=== PATIENT | female | born 1975 | race Caucasian/White ===

== ENCOUNTER 2018-02-07 18:51 | Emergency (ER) | payer BC ==
[2018-02-07] MEDS ORDERED: IPRATROPIUM-ALBUTEROL 3 ML NEB INHALATION STA (19:36)
[2018-02-07] MEDS ORDERED: methylPREDNISolone SOD SUCCI 125 MG/2 ML VIAL IM STA (19:36)
--- NOTE | 2018-02-07 19:38 | ED ---
SOB HPI - General Chief Complaint: Shortness of Breath Stated Complaint: SOB, Cold Time Seen by Provider: 02/07/18 19:17 Source: patient Mode of arrival: ambulatory Limitations: no limitations - History of Present Illness Initial Comments: Patient is a 42-year-old female with a history of asthma presents for congestion and coughing. She states that she has been working on drywall at her home and that she was exposed to a lot of. Other allergens. Since that time today, she has been having a lot of congestion but denies any overt chest pain or shortness of breath. She is also been coughing significantly but no fevers or chills. She also denies any abdominal pain or nausea/vomiting/ diarrhea. - Related Data Home Medications Medication Instructions Recorded Confirmed Acetaminophen Tab [Tylenol] 1,000 mg PO Q6HR PRN 10/05/15 10/13/15 Albuterol Inhaler [Ventolin Hfa 1 - 2 puff INHALATION RT-Q6H PRN 10/05/15 Inhaler] Ranitidine HCl [Zantac] 150 mg PO DAILY PRN 10/05/15 10/13/15 HYDROcodone/APAP 7.5-325MG [[place] 1 tab PO Q4H PRN 10/13/15 10/13/15 7.5-325] Sennosides [Ex-Lax] 15 mg PO BID PRN 10/13/15 10/13/15 Previous Rx's Medication Instructions Recorded Docusate [Colace] 100 mg PO BID #30 capsule 10/09/15 Albuterol Inhaler [Ventolin Hfa 1 - 2 puff INHALATION Q6HR PRN #1 02/07/18 Inhaler] inhaler Albuterol Nebulized [Ventolin 2.5 mg INHALATION Q4H PRN #30 nebu 02/07/18 Nebulized] predniSONE 50 mg PO DAILY #5 tablet 02/07/18 Allergies Allergy/AdvReac Type Severity Reaction Status Date / Time hydrocodone bitartrate AdvReac Unknown Itching Verified 02/07/18 19:06 [From Vicodin] Review of Systems ROS Statement: Those systems with pertinent positive or pertinent negative responses have been documented in the HPI. Constitutional: Negative for chills, fatigue and fever. HENT: Positive for congestion. Respiratory: Negative for chest tightness, shortness of breath and wheezing. Positive for cough Cardiovascular: Negative for chest pain and palpitations. Gastrointestinal: Negative for abdominal pain. Negative for abdominal distention , diarrhea, nausea and vomiting. Genitourinary: Negative for dysuria. Musculoskeletal: Negative for back pain, neck pain and neck stiffness. Skin: Negative for color change. Neurological: Negative for dizziness, speech difficulty, weakness and light- headedness. Psychiatric/Behavioral: Negative for agitation and confusion. The patient is not nervous/anxious. ROS Other: All systems not noted in ROS Statement are negative. Past Medical History Past Medical History: Asthma, Fibromyalgia, GERD/Reflux, GI Bleed, Musculoskeletal Disorder Additional Past Medical History / Comment(s): buldging disc, hx of anemia., pt states she fell and has right knee pain and swelling right lower leg and foot, states she is following with her dr. PT STATES THAT 09/08/15 SHE EXPERIENCED MIDSTERNAL CHEST PAIN AND A FAST HEART BEAT; FELLS OK NOW. History of Any Multi-Drug Resistant Organisms: None Reported Past Surgical History: Section, Tubal Ligation, Uterine Ablation Additional Past Surgical History / Comment(s): hemmoroidectomy 10/09/2015 Past Anesthesia/Blood Transfusion Reactions: Postoperative Nausea & Vomiting ( PONV) Past Psychological History: No Psychological Hx Reported Smoking Status: Current every day smoker Past Alcohol Use History: Rare Past Drug Use History: None Reported - Past Family History Mother Family Medical History: Cancer Additional Family Medical History / Comment(s): of brain cancer Father Family Medical History: Cancer Additional Family Medical History / Comment(s): throat cancer General Exam - General Exam Comments Initial Comments: Constitutional: Pt is oriented to person, place, and time. Pt appears well- developed and well-nourished. No distress. HENT: Head: Normocephalic and atraumatic. Eyes: EOM are normal. Neck: Normal range of motion. Neck supple. Cardiovascular: Normal rate, regular rhythm, S1 normal, S2 normal and normal heart sounds. Exam reveals no gallop and no friction rub. No murmur heard. Pulmonary/Chest: Effort normal and breath sounds normal. No tachypnea and no bradypnea. No respiratory distress. No wheezes or rales noted. Abdominal: Soft. Bowel sounds are normal. Pt exhibits no shifting dullness, no distension, no pulsatile liver, no fluid wave, no abdominal bruit and no ascites. There is no tenderness. There is no rigidity, no rebound, no guarding, no tenderness at McBurney's point and negative Kaufman's sign. Musculoskeletal: Normal range of motion. Neurological: Pt is alert and oriented to person, place, and time. No cranial nerve deficit. Skin: Skin is warm and dry. No rash noted. Pt is not diaphoretic. No erythema. No pallor. Psychiatric: Pt has a normal mood and affect. Pt behavior is normal. Thought content normal. Limitations: no limitations Course Vital Signs 02/07/18 02/07/18 02/07/18 19:05 19:19 19:40 Temperature 98.0 F Pulse Rate 100 102 H Respiratory 20 20 Rate Blood Pressure 138/84 O2 Sat by Pulse 98 Oximetry 02/07/18 19:47 Temperature Pulse Rate 98 Respiratory Rate Blood Pressure O2 Sat by Pulse Oximetry Medical Decision Making - Medical Decision Making Patient was given Solu-Medrol as well as breathing treatment and stated that her breathing had completely resolved. Also, there is no suggestion or evidence that would be concerning for pulmonary embolism as the patient was parked negative. Patient was given a prescription for steroids as well as albuterol and advised to follow up with PCP in the next 1-2 days. Additionally , EKG was not performed as the patient had no chest pain. Patient was agreeable to plan. Disposition Clinical Impression: Respiratory tract congestion with cough Disposition: HOME SELF-CARE Condition: Good Instructions: Asthma (ED) Prescriptions: Albuterol Inhaler [Ventolin Hfa Inhaler] 1 - 2 puff INHALATION Q6HR PRN #1 inhaler PRN Reason: Wheezing Albuterol Nebulized [Ventolin Nebulized] 2.5 mg INHALATION Q4H PRN #30 nebu PRN Reason: Wheezing predniSONE 50 mg PO DAILY #5 tablet Is patient prescribed a controlled substance at d/c from ED?: No Referrals: Fito Liriano DO [Primary Care Provider] - 1-2 days Time of Disposition: 20:18
[2018-02-07 20:40] VITALS: BP 135/87; PULSE 87; RESP 18; TEMP 98.4
== END 2018-02-07 20:40 | disposition home or self-care (01) ==
LOC: EC 18:51
DX: R09.89 Other specified symptoms and signs involving the circulatory and respiratory systems (principal); R05 Cough; J45.909 Unspecified asthma, uncomplicated; F17.200 Nicotine dependence, unspecified, uncomplicated; Z88.5 Allergy status to narcotic agent
CPT/HCPCS: 94640; 99284; 96372; J2930

== ENCOUNTER 2020-06-20 10:41 | Emergency (ER) | payer BC ==
[2020-06-20 10:47] VITALS: BP 156/95; PULSE 96; RESP 18; TEMP 98
[2020-06-20] MEDS ORDERED: predniSONE 50 MG TAB PO STA (10:59)
[2020-06-20] MEDS ORDERED: ACET/COD 300 MG/30 MG STARTER PACK 6 TAB BTL PO STA (11:00)
[2020-06-20] MEDS ORDERED: MORPHINE SULFATE 2 MG/ML SYRINGE IM STA (11:00)
--- NOTE | 2020-06-20 11:01 | ED ---
Back Pain HPI - General Chief Complaint: Back Pain/Injury Stated Complaint: BACK PAIN Time Seen by Provider: 06/20/20 10:50 Source: patient Limitations: no limitations - History of Present Illness Initial Comments: 44yo female presenting to the ER today for cc of left leg pain. Patient states that she has a history of sciatica and it usually runs down the posterior right leg. Comes and goes, hx of disc herniation. Patient states that now the pain is not on the right but the left leg identical symptoms. Sharp burning pain of the left posterior leg. Denies falls, trauma, hx of cancer, IVDU, denies fevers, denies leg weakness/paralysis or sensation deficits. She states at times it tingles. She denies loss of bowel control, urinary retention. Denies coolness, or pallor of the extremity. Patient appears well nontoxic and is ambulatory on arrival. - Related Data Home Medications Medication Instructions Recorded Confirmed Acetaminophen Tab [Tylenol] 1,000 mg PO Q6HR PRN 10/05/15 10/13/15 Albuterol Inhaler (Mhu) [Ventolin 1 - 2 puff INHALATION RT-Q6H PRN 10/05/15 10/13/15 Hfa Inhaler (Mhu)] Ranitidine HCl [Zantac] 150 mg PO DAILY PRN 10/05/15 10/13/15 HYDROcodone/APAP 7.5-325MG [[place] 1 tab PO Q4H PRN 10/13/15 10/13/15 7.5-325] Sennosides [Ex-Lax] 15 mg PO BID PRN 10/13/15 10/13/15 Previous Rx's Medication Instructions Recorded Docusate [Colace] 100 mg PO BID #30 capsule 10/09/15 Albuterol Inhaler (Mhu) [Ventolin 1 - 2 puff INHALATION Q6HR PRN #1 02/07/18 Hfa Inhaler (Mhu)] inhaler Albuterol Nebulized [Ventolin 2.5 mg INHALATION Q4H PRN #30 nebu 02/07/18 Nebulized] predniSONE 50 mg PO DAILY #5 tablet 02/07/18 predniSONE 50 mg PO DAILY 3 Days #3 tablet 06/20/20 Allergies Allergy/AdvReac Type Severity Reaction Status Date / Time hydrocodone bitartrate AdvReac Unknown Itching Verified 06/20/20 10:43 [From Vicodin] Review of Systems ROS Statement: Those systems with pertinent positive or pertinent negative responses have been documented in the HPI. ROS Other: All systems not noted in ROS Statement are negative. Past Medical History Past Medical History: Asthma, Fibromyalgia, GERD/Reflux, GI Bleed, Muscul oskeletal Disorder Additional Past Medical History / Comment(s): buldging disc, hx of anemia., pt states she fell and has right knee pain and swelling right lower leg and foot, states she is following with her dr. PT STATES THAT 09/08/15 SHE EXPERIENCED MIDSTERNAL CHEST PAIN AND A FAST HEART BEAT; FELLS OK NOW. History of Any Multi-Drug Resistant Organisms: None Reported Past Surgical History: Section, Tubal Ligation, Uterine Ablation Additional Past Surgical History / Comment(s): hemmoroidectomy 10/09/2015 Past Anesthesia/Blood Transfusion Reactions: Postoperative Nausea & Vomiting (PONV) Past Psychological History: No Psychological Hx Reported Smoking Status: Current every day smoker Past Alcohol Use History: Occasional, Rare Past Drug Use History: None Reported - Past Family History Mother Family Medical History: Cancer Additional Family Medical History / Comment(s): of brain cancer Father Family Medical History: Cancer Additional Family Medical History / Comment(s): throat cancer General Exam - General Exam Comments Initial Comments: General: The patient is awake and alert, in no distress Eye: +3 mm pupils are equal, round and reactive to light, extra-ocular movements are intact. No nystagmus. There is normal conjunctiva bilaterally. No signs of icterus. Ears, nose, mouth and throat: There are moist mucous membranes and no oral lesions. Neck: The neck is supple, there is no tenderness or JVD. Cardiovascular: There is a regular rate and rhythm. No murmur, rub or gallop is appreciated. Respiratory: Lungs are clear to auscultation, respirations are non-labored, breath sounds are equal. No wheezes, stridor, rales, or rhonchi. Gastrointestinal: Soft, non-distended, non-tender abdomen without masses or organomegaly noted. There is no rebound or guarding present. Musculoskeletal: Some paraspinal but no appreciated midline lower lumbar pain to palpation. Normal inspection. Normal ROM, of the LE b/l but there is + left sided SLR. Strength 5/5 of the LE b/l. Sensation intact of the LE b/l. +2/5 achilles/patellar reflexes. Radial and DP pulses equal bilaterally 2+. Neurological: A&O x 3. CN II-XII intact grossly, There are no obvious motor or sensory deficits. Coordination appears grossly intact. Speech is normal. Skin: Skin is warm and dry and no rashes or lesions are noted. Psychiatric: Cooperative, appropriate mood & affect, normal judgment. Limitations: no limitations Course Vital Signs 06/20/20 10:43 Temperature 98 F Pulse Rate 96 Respiratory 18 Rate Blood Pressure 156/95 O2 Sat by Pulse 98 Oximetry Medical Decision Making - Medical Decision Making Left leg pain, no trauma. Neurovascularly intact. Discussed imaging with patient at this time she would just like steroids/symptomatic treatment. No findigns on PE/history concerning for cauda equina at this time. Patient ambulatory well appearing. Patient agreeable to discharge with PCP f/u. Return for any concerning new symptoms which were discussed at length. Patient discharged appearing well. Disposition Clinical Impression: Radiculopathy Disposition: HOME SELF-CARE Condition: Good Instructions (If sedation given, give patient instructions): Sciatica (ED) Additional Instructions: Please use medication as discussed. Please follow-up with family doctor in the next 2 days.. Please return to emergency room if the symptoms increase or worsen or for any other concerns. Prescriptions: predniSONE 50 mg PO DAILY 3 Days #3 tablet Is patient prescribed a controlled substance at d/c from ED?: No Referrals: Fito Liriano DO [Primary Care Provider] - 1-2 days Time of Disposition: 11:01
== END 2020-06-20 11:32 | disposition home or self-care (01) ==
LOC: EC 10:41
DX: M54.16 Radiculopathy, lumbar region (principal); F17.200 Nicotine dependence, unspecified, uncomplicated; J45.909 Unspecified asthma, uncomplicated; K21.9 Gastro-esophageal reflux disease without esophagitis; Z88.8 Allergy status to other drugs, medicaments and biological substances
CPT/HCPCS: 99283; 96372; J2270; J7512

== ENCOUNTER 2024-11-11 14:17 | Emergency (ER) | payer BC ==
--- NOTE | 2024-11-11 14:31 | ED ---
General Adult HPI - General Chief complaint: Nausea/Vomiting/Diarrhea Stated complaint: Vomiting,Dizziness Time Seen by Provider: 11/11/24 14:23 Source: patient Mode of arrival: ambulatory Limitations: no limitations - History of Present Illness Initial comments: Dictation was produced using [email or web address] dictation software. please excuse any grammatical, word or spelling errors. Chief Complaint: 48-year-old female presents emergency department abdominal pain History of Present Illness: Patient is a 48-year-old female presents emergency department with abdominal pain. She had a peanut butter sandwich and immediately started to have some nausea, vomiting and epigastric abdominal pain. Patient [place] any allergies to peanut butter. She had a similar though milder reaction 2 days ago after having peanut butter. Last night she had chicken [place] with no issues. She does not have any history of abdominal surgery. She states that she did not react any further last night. She does not have a reaction to female. States that the pain is epigastric. The ROS documented in this emergency department record has been reviewed and confirmed by me. Those systems with pertinent positive or negative responses have been documented in the HPI. All other systems are other negative and/or noncontributory. - Related Data Home Medications Medication Instructions Recorded Confirmed Furosemide [Lasix] 20 mg PO DAILY 04/30/22 05/01/22 HYDROcodone/APAP 10-325MG [[place] 1 tab PO Q6HR PRN 04/30/22 05/01/22 10-325] Ketorolac [Toradol] 10 mg PO Q6HR PRN 04/30/22 05/01/22 Tamsulosin [Flomax] 0.4 mg PO HS 04/30/22 05/01/22 diphenhydrAMINE [Benadryl] 25 mg PO BID PRN 04/30/22 05/01/22 Previous Rx's Medication Instructions Recorded Albuterol Inhaler [Ventolin Hfa 1 - 2 puff INHALATION Q6HR PRN #1 02/07/18 Inhaler] inhaler Albuterol Nebulized [Ventolin 2.5 mg INHALATION Q4H PRN #30 nebu 02/07/18 Nebulized] Allergies Allergy/AdvReac Type Severity Reaction Status Date / Time No Known Allergies Allergy Verified 11/11/24 14:22 Review of Systems ROS Statement: Those systems with pertinent positive or pertinent negative responses have been documented in the HPI. ROS Other: All systems not noted in ROS Statement are negative. Past Medical History Past Medical History: Asthma, Fibromyalgia, Musculoskeletal Disorder Additional Past Medical History / Comment(s): bulging disc, hx of anemia., retaining fluid lower legs, recent poison oak lower legs-mostly resolved, just finished steroids for, kidney stones History of Any Multi-Drug Resistant Organisms: None Reported Past Surgical History: Section, Tubal Ligation, Uterine Ablation Additional Past Surgical History / Comment(s): hemorroidectomy 10/09/2015 Past Anesthesia/Blood Transfusion Reactions: Postoperative Nausea & Vomiting (PONV) Past Psychological History: No Psychological Hx Reported Smoking Status: Current every day smoker Past Alcohol Use History: None Reported Past Drug Use History: None Reported - Past Family History Mother Family Medical History: Cancer Additional Family Medical History / Comment(s): of brain cancer Father Family Medical History: Cancer Additional Family Medical History / Comment(s): throat cancer General Exam - General Exam Comments Initial Comments: PHYSICAL EXAM: General Impression: Alert and oriented x3, acute distress secondary to pain HEENT: Normocephalic atraumatic, extra-ocular movements intact, pupils equal and reactive to light bilaterally, mucous membranes moist. Cardiovascular: Heart regular rate and rhythm Chest: Able to complete full sentences, no retractions, no tachypnea Abdomen: abdomen soft, diffuse palpatory abdominal tenderness non-distended, no organomegaly Musculoskeletal: Pulses present and equal in all extremities, no peripheral e doron Motor: no focal deficits noted Neurological: CN II-XII grossly intact, no focal motor or sensory deficits noted Skin: Intact with no visualized rashes Psych: Normal affect and mood Limitations: no limitations Course Vital Signs 11/11/24 11/11/24 14:19 16:28 Temperature 98.2 F 98.3 F Pulse Rate 78 84 Respiratory 24 18 Rate Blood Pressure 150/62 131/72 O2 Sat by Pulse 97 95 Oximetry EKG Findings - EKG Comments: EKG Findings:: My EKG interpretation: Ventricular rate 84, sinus rhythm, SC 167, QRS 146, QTc 433, right bundle branch block. No SC prolongation, no QTC prolongation, no ST or T-wave changes noted. Overall, this EKG is unremarkable Medical Decision Making - Medical Decision Making Was pt. sent in by a medical professional or institution (, PA, [employer]INE, urgent care, hospital, or fpc...) When possible be specific @ -No Did you speak to anyone other than the patient for history (EMS, parent, family, police, friend...)? What history was obtained from this source @ -No Did you review nursing and triage notes (agree or disagree)? Why? @ -I reviewed and agree with nursing and triage notes Were old charts reviewed (outside hosp., previous admission, EMS record, old EKG, old radiological studies, urgent care reports/EKG's, fpc records)? Report findings @ -No old charts were reviewed Differential Diagnosis (chest pain, altered mental status, abdominal pain women, abdominal pain men, vaginal bleeding, musculoskeletal, weakness, fever, dyspnea, syncope, headache, dizziness, GI bleed, back pain, seizure, CVA, palpatations, mental health)? @ -Differential Abdominal Pain Women: Appendicitis, Cholecystitis, diverticulosis, ischemic bowel, pancreatitis, hepatitis, UTI, gastroenteritis, AAA, incarcerated hernia, bowel obstruction, constipation, inflammatory bowel, hepatitis, peptic ulcer disease, splenic infarction, perforated viscus, vulvitis, ovarian torsion, PID, kidney stone, placenta abruption, this is not meant to be an all-inclusive list EKG interpreted by me (3pts min.). @ -See above X-rays interpreted by me (1pt min.). @ -None done CT interpreted by me (1pt min.). @ -CT of the M pelvis shows no acute processes U/S interpreted by me (1pt. min.). @ -None done What testing was considered but not performed or refused? (CT, X-rays, U/S, labs)? Why? @ -None What meds were considered but not given or refused? Why? @ -None Was smoking cessation discussed for >3mins.? @ -No Were there social determinants of health that impacted care today? How? (Homelessness, low income, unemployed, alcoholism, drug addiction, martins sportation, low edu. Level, literacy, decrease access to med. care, fpc, rehab)? @ -No Was there de-escalation of care discussed even if they declined (Discuss DNR or withdrawal of care, Hospice)? DNR status @ -No What co-morbidities impacted this encounter? (DM, HTN, Smoking, COPD, CAD, Cancer, CVA, ARF, Chemo, Hep., AIDS, mental health diagnosis, sleep apnea, morbid obesity)? @ -None Was patient admitted / discharged? Hospital course, mention meds given and route, prescriptions, significant lab abnormalities, going to OR and other pertinent info. @ -40-year-old female presents emergency department after abdominal pain after eating peanut butter. Vital signs are stable. Patient has tender abdomen. Patient only has isolated abdominal symptoms. She has no skin symptoms throat or airway breathing lightheadedness symptoms. She is not hypotensive. No concern for anaphylaxis given that she has only 1 organ system involvement. Laboratory evaluation is unremarkable. Patient given allergy cocktail. CT ab pelvis obtained showing no acute processes. Patient given GI cocktail. Patient reevaluated at 5:07 PM with improvement of symptoms. Patient discharged told to avoid peanut butter. Patient counseled on symptoms of anaphylaxis and she has strict return precautions otherwise patient told to avoid peanut butter at this time. Did you discuss the management of the patient with other professionals (professionals i.e. , PA, [employer], lab, RT, psych nurse, social group worker, machine binder stripper, teacher, corporate officer, protective services case worker)? Give summary @ -No Was critical care preformed (if so, how long)? @ -No Undiagnosed new problem with uncertain prognosis? @ -No Drug Therapy requiring intensive monitoring for toxicity (Heparin, Nitro, Insulin, Cardizem)? @ -No Were any procedures done? @ -No Diagnosis/symptom? Acute, or Chronic, or Acute on Chronic? Uncomplicated (without systemic symptoms) or Complicated (systemic symptoms)? @ -Allergic reaction Side effects of treatment? @ -No Exacerbation, Progression, or Severe Exacerbation? @ -No Poses a threat to life or bodily function? How? (Chest pain, [place], [place], pneumonia, PE, COPD, DKA, ARF, appy, cholecystitis, CVA, Diverticulitis, Homicidal, Suicidal, threat to staff... and all critical care pts) @ -yes - Lab Data Result diagrams: 11/11/24 14:45 11/11/24 14:45 Lab Results 11/11/24 11/11/24 Range/Units 14:45 14:45 WBC 11.2 H (3.8-10.6) k/uL RBC 4.80 (3.80-5.40) m/uL Hgb 12.5 (11.4-16.0) gm/dL Hct 40.3 (34.0-46.0) % MCV 84.0 (80.0-100.0) fL MCH 26.0 (25.0-35.0) pg MCHC 31.0 (31.0-37.0) g/dL RDW 15.6 H (11.5-15.5) % Plt Count 406 (150-450) k/uL MPV 6.9 Neutrophils % 68 % Lymphocytes % 19 % Monocytes % 3 % Eosinophils % 9 % Basophils % 0 % Neutrophils # 7.5 (1.3-7.7) k/uL Lymphocytes # 2.1 (1.0-4.8) k/uL Monocytes # 0.4 (0-1.0) k/uL Eosinophils # 1.0 H (0-0.7) k/uL Basophils # 0.0 (0-0.2) k/uL Hypochromasia Moderate Sodium 137 (137-145) mmol/L Potassium 3.8 (3.5-5.1) mmol/L Chloride 101 (98-107) mmol/L Carbon Dioxide 26 (22-30) mmol/L Anion Gap 10 mmol/L BUN 16 (7-17) mg/dL Creatinine 0.80 (0.52-1.04) mg/dL Est GFR (CKD-EPI)AfAm >90 (>60 ml/min/1.73 sqM) Est GFR (CKD-EPI)NonAf 88 (>60 ml/min/1.73 sqM) Glucose 133 H (74-99) mg/dL Calcium 10.0 (8.4-10.2) mg/dL Total Bilirubin 0.3 (0.2-1.3) mg/dL AST 21 (14-36) U/L ALT 25 (4-34) U/L Alkaline Phosphatase 109 (38-126) U/L Total Protein 7.4 (6.3-8.2) g/dL Albumin 4.1 (3.5-5.0) g/dL Lipase 50 (23-300) U/L Disposition Clinical Impression: Food allergy Disposition: HOME SELF-CARE Condition: Fair Instructions (If sedation given, give patient instructions): Peanut Allergy (ED) Is patient prescribed a controlled substance at d/c from ED?: No Referrals: None,Stated [Primary Care Provider] - 1-2 days Time of Disposition: 17:08
[2024-11-11] MEDS: SODIUM CHLORIDE 0.9% 1,000 ML IV STA (14:46)
[2024-11-11] MEDS: diphenhydrAMINE 50 MG/ML 1 ML VIAL IVP STA (14:47)
[2024-11-11] MEDS: FAMOTIDINE 20 MG/2 ML VIAL IV STA (14:49)
[2024-11-11] MEDS: DEXAMETHASONE SOD PHOSPHATE 10 MG/ML 1 ML VIAL IV STA (14:51)
[2024-11-11] MEDS: MORPHINE SULFATE 4 MG/ML SYRINGE IVP PRN (14:53)
[2024-11-11] MEDS: ONDANSETRON 4 MG/2 ML VIAL IVP STA (15:00)
[2024-11-11 15:07] LABS: Basophils % (A) 0 %; Eosinophils % (A) 9 %; HCT 40.3 % (34.0-46.0); HGB 12.5 gm/dL (11.4-16.0); Hypochromasia Moderate; Lymphocytes # (A) 2.1 k/uL (1.0-4.8); Lymphocytes % (A) 19 %; Mean Platelet Volume 6.9; Monocytes # (A) 0.4 k/uL (0-1.0); Monocytes % (A) 3 %; Neutrophils # (A) 7.5 k/uL (1.3-7.7); Neutrophils % (A) 68 %; Platelet Count 406 k/uL (150-450); RDW 15.6 % (11.5-15.5); WBC 11.2 k/uL (3.8-10.6)
[2024-11-11 15:15] LABS: ALT 25 U/L (4-34); AST 21 U/L (14-36); African American GFR (CKD) >90 (>60 ml/min/1.73 sqM); Albumin 4.1 g/dL (3.5-5.0); Alkaline Phosphatase 109 U/L (38-126); Anion Gap 10 mmol/L; Blood Urea Nitrogen 16 mg/dL (7-17); Carbon Dioxide 26 mmol/L (22-30); Chloride 101 mmol/L (98-107); Glucose 133 mg/dL (74-99); Lipase 50 U/L (23-300); Non-African American GFR(CKD) 88 (>60 ml/min/1.73 sqM); Potassium 3.8 mmol/L (3.5-5.1); Sodium 137 mmol/L (137-145); Total Bilirubin 0.3 mg/dL (0.2-1.3); Total Protein 7.4 g/dL (6.3-8.2)
--- NOTE | 2024-11-11 15:58 | CT ---
EXAMINATION TYPE: CT abdomen pelvis w con DATE OF EXAM: 11/11/2024 3:52 PM COMPARISON: None CLINICAL INDICATION: Female, 48 years old with history of abdominal pain; TECHNIQUE: Axial CT abdomen pelvis w con;Sagittal and coronal reformats were created on a separate w orkstation. Contrast used: mL of , (none if empty) Oral contrast used: (none if empty) CT DLP: 2257 mGycm, Automated exposure control for dose reduction was used. FINDINGS: LOWER CHEST: Unremarkable ABDOMEN LIVER: Unremarkable GALLBLADDER AND BILE DUCTS: Unremarkable. PANCREAS: Unremarkable. SPLEEN: Unremarkable. ADRENAL GLANDS: Unremarkable. KIDNEYS AND URETERS: No evidence for this obstructive uropathy. Nonobstructing left renal calculi zafar suring up to 4 mm. PELVIS BLADDER: No evidence for wall thickening or mass given limitations of exam. REPRODUCTIVE: Dominant right ovarian follicle measuring up to 17 mm. ABDOMEN & PELVIS STOMACH AND BOWEL: No evidence of bowel obstruction. The appendix is visualized and normal. PERITONEUM/RETROPERITONEUM: No evidence of pneumoperitoneum or free fluid. VASCULATURE: No evidence of aortic aneurysm. MUSCULOSKELETAL: No acute osseous abnormalities. Mild disc degeneration changes are present throughou t the thoracolumbar spine. Grade 2 anterolisthesis of L5 on S1 there is bilateral spondylolysis. Deep degeneration of the spine is worse at L1-L2 with sclerosis and complete loss of disc space. LYMPH NODES: No gross evidence for lymphadenopathy. SOFT TISSUE/ABDOMINAL WALL: Fat-containing umbilical hernia. IMPRESSION: 1. No evidence for acute process. 2. The appendix is normal. 3. No obstructing left renal calculi measuring up to 4 mm. 4. Grade 2 anterolisthesis of L5 on S1 with bilateral spondylolysis. [facility], , 11/11/2024 3:56 PM
[2024-11-11 16:30] VITALS: RESP 18
[2024-11-11] MEDS: MAG HYDROX/AL HYDROX/SIMETH 30 ML CUP PO PRN (16:31)
[2024-11-11] MEDS: HYOSCYAMINE SULFATE 0.125 MG TAB PO STA (16:31)
[2024-11-11] MEDS: LIDOCAINE VISCOUS 2% 15 ML CUP PO ONE (16:31)
[2024-11-11 18:09] VITALS: BP 119/78; PULSE 76; TEMP 98.1
== END 2024-11-11 18:09 | disposition home or self-care (01) ==
LOC: EC 14:17
DX: T78.1XXA Other adverse food reactions, not elsewhere classified, initial encounter (principal); F17.200 Nicotine dependence, unspecified, uncomplicated; Z91.010 Allergy to peanuts
CPT/HCPCS: 36415; 93005; 80053; 83690; 85025; 74177; 99284; 96374; 96375 ×4; 96361 ×3; J2270; J1200; J1100; J2405; J3490; Q9967